=== PATIENT | male | born 1955 | race Caucasian/White ===

== ENCOUNTER 2021-06-27 15:13 | Emergency (ER) | payer OTHER, SELFPAY ==
[2021-06-27 15:20] VITALS: BP 142/86; PULSE 59; RESP 22; TEMP 36.5; O2SAT 95; BMI 25.8
--- NOTE | 2021-06-27 15:28 | DI.RAD.S_ITS ---
PROCEDURE: XR CHEST 1V INDICATIONS: SOB TECHNIQUE: One view of the chest was acquired. COMPARISON: None. FINDINGS: Surgical changes and devices: None. Lungs and pleura: Minimal hazy opacity at the left lung base. Suspect atelectasis. No consolidation. No pleural effusions or pneumothorax. Mediastinum: Mediastinal contours appear normal. Heart size is normal. Bones and chest wall: No suspicious bony lesions. Overlying soft tissues appear unremarkable. IMPRESSION: Minimal hazy opacity at the left lung base. Suspect atelectasis. Dictated by: Rosales Pacheco M.D. on 06/27/2021 at 14:48 Approved by: Rosales Pacheco M.D. on 06/27/2021 at 14:49
[2021-06-27 15:45] LABS: Add Manual Diff / Slide Review NO; Basophils Absolute Auto 0 /uL (0-100); Basophils Percent Auto 0.8 % (0-2); Eosinophils Absolute Auto 200 /uL (0-450); Eosinophils Percent Auto 4.9 % (2-4); Hematocrit 42.2 % (41-53); Hemoglobin 14.7 g/dL (13.5-17.5); Lymphocytes Absolute Auto 1300 /uL (1100-4500); Lymphocytes Percent Auto 29.4 % (25-40); Mean Corpuscular HGB Conc 34.7 % (30-36); Mean Corpuscular Hemoglobin 29.8 PG (26-34); Mean Corpuscular Volume 85.9 fL (80-100); Monocytes Absolute Auto 700 /uL (0-900); Monocytes Percent Auto 16.1 % (3-14); Neutrophils Absolute Auto 2100 /uL (1500-7000); Neutrophils Percent Auto 48.8 % (50-75); Platelet Count 146 X10^3/uL (150-400); Red Blood Cell Count 4.92 X10^6/uL (4.5-5.9); Red Cell Distribution Width 13.3 % (11.6-14.8); White Blood Cell Count 4.3 X10^3/uL (4.5-11.0)
[2021-06-27 15:52] LABS: INR 2.7 (0.9-1.3); Prothrombin Time 31.3 SECONDS (10.1-12.7)
[2021-06-27 15:57] LABS: Alanine Aminotransferase 33 IU/L (<50); Albumin 4.3 g/dL (3.5-5.0); Albumin Globulin Ratio 1.3 (1.0-2.8); Alkaline Phosphatase 111 U/L (38-126); Aspartate Aminotransferase 44 IU/L (17-59); BUN Creatinine Ratio 28.8 (6-22); Bilirubin Total 0.6 mg/dL (0.2-1.3); Blood Urea Nitrogen 21 mg/dL (9-20); Calcium 9.4 mg/dL (8.4-10.2); Carbon Dioxide 27 mmol/L (22-32); Chloride 102 mmol/L (98-107); Creatine Kinase 176 U/L (55-170); Estimated Glomerular Filt Rate > 60.0 mL/min (>60); Globulin 3.2 g/dL (1.7-4.1); Glucose 99 mg/dL (80-110); HEMOLYSIS < 15 (0-50); Potassium 4.4 mmol/L (3.4-5.1); Sodium 135 mmol/L (137-145); Total Protein 7.5 g/dL (6.3-8.2)
[2021-06-27 16:00] LABS: COVID19 -Nasal RAPID Negative (Negative)
[2021-06-27 16:10] LABS: NT-proBNP (BNP-Adult 18+) 23 pg/mL (<125); Troponin I < 0.012 ng/mL (0.01-0.034)
[2021-06-27 16:13] LABS: CKMB % Relative Index 1.8 % (1.5-5.0); Creatine Kinase MB 3.13 ng/mL (<2.37)
--- NOTE | 2021-06-27 17:04 | ED.URI ---
HPI - URI/Sore Throat General Chief Complaint: Upper Respiratory Symptoms Stated Complaint: Resp Falling Off, Thinks COVID Time Seen by Provider: 06/27/21 15:28 Source: patient Mode of arrival: Ambulatory History of Present Illness HPI Narrative: 66-year-old male nonsmoker with a reported history of possible atrial fibrillation presents with a chief complaint of various upper respiratory symptoms over the past few days. He states he has had runny nose, sneezing and nasal congestion as well as some postnasal drip and occasional cough. He states that over the past day or to his breathing has become increasingly difficult. He states it is worse when he is active but denies any change when he lies flat. He has had no fever or chills. He denies GI symptoms such as nausea, vomiting or diarrhea. He called his nursing hotline and was instructed to present here. Related Data Allergies Allergy/AdvReac Type Severity Reaction Status Date / Time No Known Drug Allergies Allergy Verified 06/27/21 15:25 Review of Systems Review of Systems Narrative: GENERAL: See HPI HEENT see HPI RESPIRATORY: See HPI CARDIOVASCULAR: Denies chest pain, palpitations, orthopnea, edema, GASTROINTESTINAL: Denies nausea, vomiting, abdominal pain, diarrhea, constipation, melena. : Denies dysuria, frequency, incontinence, hematuria, urinary retention. MUSCULOSKELETAL: denies weakness, joint pain, or bony pain SKIN: Denies rash, skin lesions, or other NEUROLOGIC: Denies weakness, headache, numbness, change in speech, confusion, seizures, incoordination. PSYCHIATRIC: No concerning psychosocial issues. 12 point review of systems is negative except for those stated above Patient History Social History Smoking Status: Unknown if ever smoked Smoking Status: Unknown if ever smoked alcohol intake frequency: holidays/special occasions only Substance Use Type: does not use Exam Narrative Exam Narrative: GENERAL: [66 year old patient appears stated age. Well-developed patient, in mild distress. HEAD: Atraumatic. Normocephalic. EYES: Pupils equal round and reactive. Extraocular motions intact. No scleral icterus. No injection or drainage. ENT: Nose without bleeding, purulent drainage. Throat without erythema, tonsillar hypertrophy or exudate. Airway patent. NECK: Trachea midline. Non tender CARDIOVASCULAR: Regular rate and rhythm without murmurs, gallops, or rubs. RESPIRATORY: Clear to auscultation. Breath sounds equal bilaterally. No wheezes, rales, or rhonchi. GASTROINTESTINAL: Abdomen soft, non-tender, nondistended. EXTREMITIES: No edema or joint tenderness. BACK: Nontender without deformity or crepitance. No flank tenderness. NEURO: AOx3. SKIN: No rash or erythema of visible areas Initial Vital Signs Initial Vital Signs: Vital Signs Temperature 97.7 F 06/27/21 15:20 Pulse Rate 59 L 06/27/21 15:20 Respiratory Rate 22 06/27/21 15:20 Blood Pressure 142/86 H 06/27/21 15:20 Pulse Oximetry 95 06/27/21 15:20 Course Orders Ordered: ED Orders 06/27/21 13:37 COVID19 -Nasal swab/Pre-Proc Stat Complete Blood Count AUTO DIFF Stat Comprehensive Metabolic Panel Stat NT-proBNP (BNP-Adult 18+) Stat Prothrombin Time INR Stat Troponin & CK Cardiac Panel Stat 06/27/21 15:28 XR chest 1V Stat Vital Signs Vital signs: Vital Signs - 8 hr 06/27/21 15:20 Temperature 97.7 F Pulse Rate 59 L Respiratory Rate 22 Blood Pressure 142/86 H Pulse Oximetry 95 MDM - URI/Sore Throat Lab Data Result diagrams: 06/27/21 13:37 06/27/21 13:37 Labs: Lab Results 06/27/21 06/27/21 06/27/21 Range/Units 13:37 13:37 13:37 WBC 4.3 L (4.5-11.0) X10^3/uL RBC 4.92 (4.5-5.9) X10^6/uL Hgb 14.7 (13.5-17.5) g/dL Hct 42.2 (41-53) % MCV 85.9 (80-100) fL MCH 29.8 (26-34) PG MCHC 34.7 (30-36) % RDW 13.3 (11.6-14.8) % Plt Count 146 L (150-400) X10^3/uL Neut % (Auto) 48.8 L (50-75) % Lymph % (Auto) 29.4 (25-40) % [place] % (Auto) 16.1 H (3-14) % Eos % (Auto) 4.9 H (2-4) % Baso % (Auto) 0.8 (0-2) % Neut # (Auto) 2100 (6341-0134) /uL Lymph # (Auto) 1300 (9946-9655) /uL [place] # (Auto) 700 (0-900) /uL Eos # (Auto) 200 (0-450) /uL Baso # (Auto) 0 (0-100) /uL PT 31.3 H (10.1-12.7) SECONDS INR 2.7 H (0.9-1.3) Sodium 135 L (137-145) mmol/L Potassium 4.4 (3.4-5.1) mmol/L Chloride 102 (98-107) mmol/L Carbon Dioxide 27 (22-32) mmol/L BUN 21 H (9-20) mg/dL Creatinine 0.73 (0.66-1.25) mg/dL Estimated GFR > 60.0 (>60) mL/min BUN/Creatinine Ratio 28.8 H (6-22) Glucose 99 (80-110) mg/dL Calcium 9.4 (8.4-10.2) mg/dL Total Bilirubin 0.6 (0.2-1.3) mg/dL AST 44 (17-59) IU/L ALT 33 (<50) IU/L Alkaline Phosphatase 111 (38-126) U/L Total Creatine Kinase 176 H (55-170) U/L CK-MB (CK-2) 3.13 H (<2.37) ng/mL CK-MB (CK-2) Rel Index 1.8 (1.5-5.0) % Troponin I < 0.012 (0.01-0.034) ng/mL NT-Pro-B Natriuret Pep 23 (<125) pg/mL Total Protein 7.5 (6.3-8.2) g/dL Albumin 4.3 (3.5-5.0) g/dL Globulin 3.2 (1.7-4.1) g/dL Albumin/Globulin Ratio 1.3 (1.0-2.8) SARS-CoV-2 (PCR) (Negative) 06/27/21 Range/Units 13:37 WBC (4.5-11.0) X10^3/uL RBC (4.5-5.9) X10^6/uL Hgb (13.5-17.5) g/dL Hct (41-53) % MCV (80-100) fL MCH (26-34) PG MCHC (30-36) % RDW (11.6-14.8) % Plt Count (150-400) X10^3/uL Neut % (Auto) (50-75) % Lymph % (Auto) (25-40) % [place] % (Auto) (3-14) % Eos % (Auto) (2-4) % Baso % (Auto) (0-2) % Neut # (Auto) (1062-9719) /uL Lymph # (Auto) (6931-9221) /uL [place] # (Auto) (0-900) /uL Eos # (Auto) (0-450) /uL Baso # (Auto) (0-100) /uL PT (10.1-12.7) SECONDS INR (0.9-1.3) Sodium (137-145) mmol/L Potassium (3.4-5.1) mmol/L Chloride (98-107) mmol/L Carbon Dioxide (22-32) mmol/L BUN (9-20) mg/dL Creatinine (0.66-1.25) mg/dL Estimated GFR (>60) mL/min BUN/Creatinine Ratio (6-22) Glucose (80-110) mg/dL Calcium (8.4-10.2) mg/dL Total Bilirubin (0.2-1.3) mg/dL AST (17-59) IU/L ALT (<50) IU/L Alkaline Phosphatase (38-126) U/L Total Creatine Kinase (55-170) U/L CK-MB (CK-2) (<2.37) ng/mL CK-MB (CK-2) Rel Index (1.5-5.0) % Troponin I (0.01-0.034) ng/mL NT-Pro-B Natriuret Pep (<125) pg/mL Total Protein (6.3-8.2) g/dL Albumin (3.5-5.0) g/dL Globulin (1.7-4.1) g/dL Albumin/Globulin Ratio (1.0-2.8) SARS-CoV-2 (PCR) Negative (Negative) Imaging Data Chest x-ray: Radiologist's Impression: Chart Viewer Diagnostics Subcategory All Activity ??:?? All Time ??:?? All Subcategories Filter Laboratory Imaging Microbiology Pathology Blood Bank Tests Cardiovascular Other Specialty DATE TYPE STATUS REF RANGE/AUTHOR Hx Today 15:28 Chest X-Ray Signed Call,Clement Davila ED 66, M?1955 MRN#? [id number] REG ER,?Main ED??R08?? 177.8cm 81.647kg BMI: 25.8kg/m? Upper Respiratory Symptoms Acc#? [id number] Resus Status Not Ordered No Hx Avail Special Indicators No Data to Display Home Meds Prescription Monitoring Program No Data to Display Allergies No Known Drug Allergies Problems ? ONSET Upper respiratory infection Vital Signs Today 15:20 BP 142/86?H Pulse 59?L Resp 22? Temp 97.7 F? O2 Sat 95? Delivery Room Air? Diagnostics Reports Clement Lantigua??66??M??1955 ? Allergy/Adv: No Known Drug Allergies (More??) Close Chest X-Ray (Signed) CallRosales - 06/27/21 Launch?[place] [address] XRay Report Signed Patient: Clement Lantigua MR#: [id number] : 1955 Acct:[id number] Age/Sex: 66 / M Date of Service: 06/27/21 Loc: ED Accession Number: [id number] ?? Procedure: XR chest 1V Ordering Provider: Geronimo Pineda D.O. PROCEDURE:? XR CHEST 1V ? INDICATIONS:? SOB ? TECHNIQUE:? One view of the chest was acquired.? ? COMPARISON:? None. ? FINDINGS:? ? Surgical changes and devices:? None.? ? Lungs and pleura:? Minimal hazy opacity at the left lung base.? Suspect atelectasis.? No consolidation.? No pleural effusions or pneumothorax.? ? Mediastinum:? Mediastinal contours appear normal.? Heart size is normal.? ? Bones and chest wall:? No suspicious bony lesions.? Overlying soft tissues appear unremarkable.? ? IMPRESSION:? Minimal hazy opacity at the left lung base.? Suspect atelectasis. ? ? ? Dictated by: Rosales Pacheco M.D. on 06/27/2021 at 14:48 ? ? Approved by: Rosales Pacheco M.D. on 06/27/2021 at 14:49 ? [facility] Narrative Medical decision making narrative: Patient with very reassuring history and physical exam. Labs are unremarkable, chest x-ray demonstrates atelectasis and COVID is negative. He has no significant work of breathing, need for exhaustion is oxygen and lungs are clear on exam. We did briefly discuss the potential use of an atypical coverage for atypical pneumonia but given his use of Coumadin for AFib and lack of classic findings as well as his general sensitivity to antibiotics we elected to hold off. Extensive return precautions given and questions answered to his apparent satisfaction Discharge Plan Departure Patient Disposition: Home Clinical Impression: Upper respiratory infection Instructions: DI for Viral Upper Respiratory Infection -- Adult Activity Restrictions/Additional Instructions: *You have been diagnosed with [viral upper respiratory infection. As we discussed your COVID test is negative. Your history and physical exam are reassuring as is the blood work and chest x-ray. *What to do: *Please continue to take your regular medications as directed. As we discussed, please consider taking your cetirizine twice daily for the next week or so and resume the use of your Flonase which may also help. *Please follow up with your primary care provider in 2-3 days, call for an appointment. Let them know you were seen in the Emergency Department and that we ask that you be seen in follow up. We will electronically transmit a record of today's note if your PCP is in our system *If you do not have a primary care provider please contact the [facility] Resource line at [phone]. They will ask some questions about your medical history and help get you set up with a doctor in the community. *Return to Emergency Department if you should have any new, worsening or concerning symptoms, such as [fever greater than 101 F, shaking chills, worsening pain, persistent vomiting or other bothersome symptoms] Referrals: Salo Lovett MD [Primary Care Provider] -
[2021-06-27 17:33] VITALS: BP 138/86; PULSE 53; RESP 16; TEMP 36.8; O2SAT 96
== END 2021-06-27 17:34 | disposition home or self-care (01) ==
PROVIDERS: Emergency Provider Emergency Medicine; PCP Internal Medicine
DX: J06.9 Acute upper respiratory infection, unspecified (principal); Z20.822 Contact with and (suspected) exposure to COVID-19
CPT/HCPCS: 36415; 71045; 80053; 82550; 82553; 83880; 84484; 85025; 85610; 87635; 99283; 99284; C9803

== ENCOUNTER 2022-02-28 11:22 | Emergency (ER) | payer OTHER, SELFPAY ==
[2022-02-28 11:32] VITALS: BP 137/89; PULSE 64; RESP 17; TEMP 36.5; O2SAT 98; BMI 25.8
--- NOTE | 2022-02-28 11:33 | DI.RAD.S_ITS ---
PROCEDURE: XR CHEST 1V INDICATIONS: chest pain TECHNIQUE: One view of the chest was acquired. COMPARISON: [facility], CR, XR CHEST 1V, 06/27/2021, 15:37. FINDINGS: Surgical changes and devices: None. Lungs and pleura: Lungs are clear. No pleural effusions or pneumothorax. Mediastinum: Mediastinal contours appear normal. Heart size is normal. Bones and chest wall: No suspicious bony lesions. Overlying soft tissues appear unremarkable. IMPRESSION: No acute cardiopulmonary abnormality identified. Dictated by: Rosales Pacheco M.D. on 02/28/2022 at 12:56 Approved by: Rosales Pacheco M.D. on 02/28/2022 at 12:57
[2022-02-28 12:08] LABS: Add Manual Diff / Slide Review NO; Basophils Absolute Auto 0 /uL (0-100); Basophils Percent Auto 0.5 % (0-2); Eosinophils Absolute Auto 200 /uL (0-450); Eosinophils Percent Auto 3.8 % (2-4); Hematocrit 41.8 % (41-53); Hemoglobin 13.8 g/dL (13.5-17.5); Lymphocytes Absolute Auto 1000 /uL (1100-4500); Lymphocytes Percent Auto 18.1 % (25-40); Mean Corpuscular HGB Conc 33.1 % (30-36); Mean Corpuscular Hemoglobin 29.1 PG (26-34); Mean Corpuscular Volume 87.8 fL (80-100); Monocytes Absolute Auto 600 /uL (0-900); Monocytes Percent Auto 11.9 % (3-14); Neutrophils Absolute Auto 3500 /uL (1500-7000); Neutrophils Percent Auto 65.7 % (50-75); Platelet Count 148 X10^3/uL (150-400); Red Blood Cell Count 4.76 X10^6/uL (4.5-5.9); Red Cell Distribution Width 13.5 % (11.6-14.8); White Blood Cell Count 5.3 X10^3/uL (4.5-11.0)
[2022-02-28 12:09] LABS: INR 2.7 (0.9-1.3); Prothrombin Time 31.6 SECONDS (10.1-12.7)
[2022-02-28 12:12] LABS: PTT Partial Thromboplastin Tim 40 SECONDS (26-36)
[2022-02-28 12:24] LABS: Alanine Aminotransferase 31 IU/L (<50); Albumin 4.3 g/dL (3.5-5.0); Albumin Globulin Ratio 1.4 (1.0-2.8); Alkaline Phosphatase 97 U/L (38-126); Aspartate Aminotransferase 32 IU/L (17-59); BUN Creatinine Ratio 19.6 (6-22); Bilirubin Total 0.7 mg/dL (0.2-1.3); Blood Urea Nitrogen 11 mg/dL (9-20); Calcium 9.3 mg/dL (8.4-10.2); Carbon Dioxide 27 mmol/L (22-32); Chloride 102 mmol/L (98-107); Creatine Kinase 117 U/L (55-170); Estimated Glomerular Filt Rate > 60 mL/min (>60); Glucose 111 mg/dL (80-110); HEMOLYSIS < 15 (0-50); Lipase 75 U/L (23-300); Magnesium 1.9 mg/dL (1.6-2.3); Potassium 4.4 mmol/L (3.4-5.1); Sodium 138 mmol/L (137-145); Total Protein 7.3 g/dL (6.3-8.2)
[2022-02-28 12:35] LABS: Troponin I < 0.012 ng/mL (0.01-0.034)
[2022-02-28 12:39] LABS: CKMB % Relative Index 1.3 % (1.5-5.0); Creatine Kinase MB 1.48 ng/mL (<2.37)
[2022-02-28 15:03] LABS: Troponin I < 0.012 ng/mL (0.01-0.034)
[2022-02-28 16:50] VITALS: BP 146/74; PULSE 56; RESP 19
[2022-02-28 17:00] VITALS: BP 131/87; PULSE 57; RESP 27; O2SAT 99
--- NOTE | 2022-02-28 17:19 | ED_ITS ---
HPI - Chest Pain General Chief Complaint: Chest Pain Stated Complaint: heart pain t-1 Time Seen by Provider: 02/28/22 16:29 Source: patient Mode of arrival: Ambulatory Limitations: no limitations History of Present Illness HPI narrative: This is a 66-year-old male with hypertension, dyslipidemia, atrial fibrillation with daily warfarin and what he describes as chronic pain syndrome on the left side of his body. Patient presents with complaint of left-sided chest pain which he states has occurred in the past he states he has always been told that it is not his heart when he has had it checked out. Patient states he does take ibuprofen at sometimes helpful. He denies any shortness of breath he states his left shoulder and chest. Also into his left ear but he states ear discomfort is chronic and he has not had his phenylephrine nasal today and so that has returned. Patient states he has been a friend for eustachian tube dysfunction. He denies fevers, chills, cold cough or congestion. He denies nausea or vomiting, no diaphoresis. No new swelling of extremities. Patient states it started yesterday and has continued throughout the entire day, night and into today. Nothing seems to make it better or worse. Notes he has what he describes as a pain syndrome that affects his left side including his leg his thoracic area in the back normally. Patient states he has had tonsillectomy he has never had cardiac stents or intervention. Patient states he is allergic to latex. Denies any active tobacco, occasional alcohol, no illicit. His primary care is through [facility] XAVI Zavala. Related Data Home Medications Medication Instructions Recorded Confirmed atorvastatin 40 mg tablet 40 mg PO DAILY 02/28/22 02/28/22 benazepril 20 mg tablet 20 mg PO DAILY 02/28/22 02/28/22 carvedilol 12.5 mg tablet 12.5 mg PO DAILY 02/28/22 02/28/22 finasteride 5 mg tablet 5 mg PO DAILY 02/28/22 02/28/22 lansoprazole 30 mg capsule,delayed 30 mg PO DAILY 02/28/22 02/28/22 release tamsulosin 0.4 mg capsule 0.4 mg PO DAILY 02/28/22 02/28/22 warfarin 2 mg tablet See Rx Instructions .Route .COMPLEX 02/28/22 02/28/22 warfarin 5 mg tablet See Rx Instructions .Route .COMPLEX 02/28/22 02/28/22 Allergies Allergy/AdvReac Type Severity Reaction Status Date / Time No Known Drug Allergies Allergy Verified 02/28/22 11:35 Review of Systems Review of Systems ROS Unobtainable: All systems reviewed & are unremarkable except as noted in HPI and below Patient History Social History Smoking Status: Unknown if ever smoked Smoking Status: Unknown if ever smoked alcohol intake frequency: holidays/special occasions only Substance Use Type: does not use Exam Narrative Exam Narrative: GENERAL: Alert and oriented x three, male in mild distress. HEENT: Head normocephalic, atraumatic, EOMI, pupils reactive, face symmetric, moist mucous membranes NECK: Supple, full range of motion, no cervical vertebral tenderness. CARDIOVASCULAR: Regular rate and rhythm without murmurs, rubs or gallops. No JVD. No swelling bilateral lower extremities or upper extremities. RESPIRATORY: Breath sounds equal bilaterally, no wheezes rales or rhonchi. ABDOMEN: Soft, nontender. Normoactive bowel sounds all 4 quadrants. No guarding or rebound, rigidity, no mass : No CVA tenderness EXTREMITIES: Normal range of motion, no clubbing or edema. Neurovascularly intact. NEUROLOGICAL: Cranial nerves II through XII grossly intact. Moving all extremities. 5/5 muscle strength, normal range of motion of the shoulder. SKIN: Warm, dry, no petechiae, no rashes or lesions, no blisters erythema on the torso or back. Initial Vital Signs Initial Vital Signs: Vital Signs Temperature 97.7 F 02/28/22 11:32 Pulse Rate 64 02/28/22 11:32 Respiratory Rate 17 02/28/22 11:32 Blood Pressure 137/89 02/28/22 11:32 Pulse Oximetry 98 02/28/22 11:32 Oxygen Delivery Method 02/28/22 11:32 Course Orders Ordered: ED Orders 02/28/22 11:33 XR chest 1V Stat 02/28/22 11:36 EKG-12 Lead Stat 02/28/22 11:44 Complete Blood Count AUTO DIFF Stat Comprehensive Metabolic Panel Stat Lipase Stat Magnesium Stat Partial Thromboplastin Time Stat Prothrombin Time INR Stat Troponin & CK Cardiac Panel Stat 02/28/22 14:05 Trop I [Troponin I] Stat 02/28/22 17:08 EKG-12 Lead Stat 02/28/22 17:21 COVID19 -Nasal RAPID/Pre-Proc Stat Discontinued Medications Aspirin (Aspirin 81 Mg Chew Tab) 324 mg PO NOW ONE Stop: 02/28/22 11:33 Last Admin: 02/28/22 17:23 Dose: Not Given Documented By: JOHNATHON Ketorolac Tromethamine (Ketorolac 30 Mg/Ml Vial) 15 mg IV NOW ONE Stop: 02/28/22 17:37 Last Admin: 02/28/22 18:03 Dose: 15 mg Documented By: JOHNATHON Vital Signs Vital signs: Vital Signs - 8 hr 02/28/22 16:50 02/28/22 16:50 02/28/22 17:00 Pulse Rate 56 L Respiratory Rate 19 Blood Pressure 146/74 H 131/87 Pulse Oximetry 02/28/22 17:00 02/28/22 17:30 02/28/22 17:30 Pulse Rate 57 L 54 L Respiratory Rate 27 H 21 Blood Pressure 144/88 H Pulse Oximetry 99 98 02/28/22 18:00 02/28/22 18:00 02/28/22 18:30 Pulse Rate 55 L Respiratory Rate 16 Blood Pressure 144/91 H 130/78 Pulse Oximetry 97 02/28/22 18:30 Pulse Rate 55 L Respiratory Rate 18 Blood Pressure Pulse Oximetry 96 MDM - Chest Pain Lab Data Result diagrams: 02/28/22 11:44 02/28/22 11:44 Labs: Lab Results 02/28/22 02/28/22 02/28/22 Range/Units 11:44 11:44 11:44 WBC 5.3 (4.5-11.0) X10^3/uL RBC 4.76 (4.5-5.9) X10^6/uL Hgb 13.8 (13.5-17.5) g/dL Hct 41.8 (41-53) % MCV 87.8 (80-100) fL MCH 29.1 (26-34) PG MCHC 33.1 (30-36) % RDW 13.5 (11.6-14.8) % Plt Count 148 L (150-400) X10^3/uL Neut % (Auto) 65.7 (50-75) % Lymph % (Auto) 18.1 L (25-40) % [place] % (Auto) 11.9 (3-14) % Eos % (Auto) 3.8 (2-4) % Baso % (Auto) 0.5 (0-2) % Neut # (Auto) 3500 (2836-1374) /uL Lymph # (Auto) 1000 L (2356-5437) /uL [place] # (Auto) 600 (0-900) /uL Eos # (Auto) 200 (0-450) /uL Baso # (Auto) 0 (0-100) /uL PT 31.6 H (10.1-12.7) SECONDS INR 2.7 H (0.9-1.3) APTT 40 H (26-36) SECONDS Sodium 138 (137-145) mmol/L Potassium 4.4 (3.4-5.1) mmol/L Chloride 102 (98-107) mmol/L Carbon Dioxide 27 (22-32) mmol/L BUN 11 (9-20) mg/dL Creatinine 0.56 L (0.66-1.25) mg/dL Estimated GFR > 60 (>60) mL/min BUN/Creatinine Ratio 19.6 (6-22) Glucose 111 H (80-110) mg/dL Calcium 9.3 (8.4-10.2) mg/dL Magnesium 1.9 (1.6-2.3) mg/dL Total Bilirubin 0.7 (0.2-1.3) mg/dL AST 32 (17-59) IU/L ALT 31 (<50) IU/L Alkaline Phosphatase 97 (38-126) U/L Total Creatine Kinase 117 (55-170) U/L CK-MB (CK-2) 1.48 (<2.37) ng/mL CK-MB (CK-2) Rel Index 1.3 L (1.5-5.0) % Troponin I < 0.012 (0.01-0.034) ng/mL Total Protein 7.3 (6.3-8.2) g/dL Albumin 4.3 (3.5-5.0) g/dL Globulin 3.0 (1.7-4.1) g/dL Albumin/Globulin Ratio 1.4 (1.0-2.8) Lipase 75 (23-300) U/L SARS-CoV-2 (PCR) (Negative) 02/28/22 02/28/22 Range/Units 14:05 17:21 WBC (4.5-11.0) X10^3/uL RBC (4.5-5.9) X10^6/uL Hgb (13.5-17.5) g/dL Hct (41-53) % MCV (80-100) fL MCH (26-34) PG MCHC (30-36) % RDW (11.6-14.8) % Plt Count (150-400) X10^3/uL Neut % (Auto) (50-75) % Lymph % (Auto) (25-40) % [place] % (Auto) (3-14) % Eos % (Auto) (2-4) % Baso % (Auto) (0-2) % Neut # (Auto) (5464-2191) /uL Lymph # (Auto) (4897-2624) /uL [place] # (Auto) (0-900) /uL Eos # (Auto) (0-450) /uL Baso # (Auto) (0-100) /uL PT (10.1-12.7) SECONDS INR (0.9-1.3) APTT (26-36) SECONDS Sodium (137-145) mmol/L Potassium (3.4-5.1) mmol/L Chloride (98-107) mmol/L Carbon Dioxide (22-32) mmol/L BUN (9-20) mg/dL Creatinine (0.66-1.25) mg/dL Estimated GFR (>60) mL/min BUN/Creatinine Ratio (6-22) Glucose (80-110) mg/dL Calcium (8.4-10.2) mg/dL Magnesium (1.6-2.3) mg/dL Total Bilirubin (0.2-1.3) mg/dL AST (17-59) IU/L ALT (<50) IU/L Alkaline Phosphatase (38-126) U/L Total Creatine Kinase (55-170) U/L CK-MB (CK-2) (<2.37) ng/mL CK-MB (CK-2) Rel Index (1.5-5.0) % Troponin I < 0.012 (0.01-0.034) ng/mL Total Protein (6.3-8.2) g/dL Albumin (3.5-5.0) g/dL Globulin (1.7-4.1) g/dL Albumin/Globulin Ratio (1.0-2.8) Lipase (23-300) U/L SARS-CoV-2 (PCR) Negative (Negative) Imaging Data Chest x-ray: Radiologist's Impression: Close Abdomen/Pelvis CT (Signed) Isaac Chen - 02/28/22 Chest X-Ray (Signed) Marko Loya - 02/28/22 Abdomen Ultrasound (Signed) KingRosendo jonesel - 02/12/22 Abdomen/Pelvis CT (Signed) StefanoBennie - 02/12/22 Abdomen Ultrasound (Signed) Rosales Pacheco - 09/23/21 Tibia/Fibula X-Ray (Signed) Pierce Parmar - 05/06/21 Foot X-Ray (Signed) Pierce Parmar - 05/06/21 Vascular Ultrasound (Signed) Jairo Bledsoe - 05/04/21 DI Result 05/01/21 DI Result CC 05/01/21 DI Result CC 04/24/[address] (Signed) Sherley Zavala - 03/14/21 Cervical Spine MRI (Signed) Pierce Parmar - 03/14/[address] (Signed) Sherley Zavala - 03/10/21 Abdomen/Pelvis CT (Signed) Garry De Santiago - 02/20/21 Outside Echo 10/08/20 DI Result CC 10/08/20 Thoracic Spine X-Ray (Signed) Garry De Santiago - 08/02/20 Hip X-Ray (Signed) Garry De Santiago - 08/02/20 Abdomen Ultrasound (Signed) Isaac Chen - 06/04/20 Chest X-Ray (Signed) Deny Walls - 06/04/20 Echocardiogram Ultrasound (Signed) Roslyn Mclaughlin - 06/15/19 Abdomen Ultrasound (Signed) Pepe Obrien - 05/12/19 Chest X-Ray (Signed) Lizzeth Dickinson - 04/14/19 EKG Rpt. 04/14/19 Telemetry Strips 04/14/19 Telemetry Strips 03/31/18 Telemetry Strips 12/09/[address] [address] [address] Scan Report Signed Patient: Jose Ramon Luna MR#: [id number] : 05/15/1950 Acct:[id number] Age/Sex: 71 / M Date of Service: 02/28/22 Loc: ED Accession Number: [id number] ?? Procedure: CT abdomen pelvis w con Ordering Provider: Deisi Trejo D.O. PROCEDURE:? CT ABDOMEN PELVIS W CON ? INDICATIONS:? abd pain ? TECHNIQUE:? After the administration of intravenous contrast, axial sections acquired from the lung bases to the pubic symphysis.? Coronal and sagittal reformats were performed.? For radiation dose reduction, the following was used:? automated exposure control, adjustment of mA and/or kV according to patient size.? ? COMPARISON:? [facility], CT, CT ABDOMEN PELVIS W CON, 02/12/2022, 18:44.? [facility], CT, CT ABDOMEN PELVIS W CON, 02/20/2021, 18:24. ? FINDINGS:? Image quality:? Excellent.? ? Lung bases:? Unremarkable. Heart:? No significant findings. ? ABDOMEN: Liver:? Small in size, nodular in margination.? Mildly heterogeneous in enhancement but no mass found..? ? Gallbladder:? Surgically absent? ? Biliary ducts:? Unremarkable.? ? Pancreas:? Unremarkable.? ? Spleen:? Enlarged up to 17 cm craniocaudad.? ? Adrenal Glands:? Unremarkable.? ? Kidneys and Ureters:? Unremarkable.? ? ? Stomach and Bowel:? Stomach, small bowel loops, and colon are unremarkable.? Peritoneum:? Significant abnormal intraperitoneal fluid, consistent with ascites likely related to hepatic insufficiency and portal hypertension.? Mild varices..? No free air.? ? Ventral Wall: ? No hernias.? Abdominal Nodes:? No retroperitoneal or mesenteric adenopathy by size criteria.? Vessels:? Aorta and inferior vena cava are normal in size.? ? PELVIS: Pelvic Organs:? Unremarkable.? ? Bladder:? Unremarkable.? ? Pelvic Nodes: No enlarged lymph nodes.? Miscellaneous: No hernias are seen. ? ? ? Bones:? Unremarkable.? IMPRESSION:? Cirrhotic change at the liver, relatively prominent ascites.? Splenomegaly, mild varices.? Varices extend cephalad along the distal esophagus to a mild degree.? A definite source of acute onset abdominal pain is not seen.. ? ? Dictated by: Isaac Chen M.D. on 02/28/2022 at 14:00 ? ? Approved by: Isaac Chen M.D. on 02/28/2022 at 14:05?? ECG Data Attestation: I personally reviewed and interpreted this ECG as follows: Prior ECG tracings: available for review Interpretation: Sinus bradycardia rate of 59 NH 184 QRS of [address] No acute [address] elevation EKG 2, sinus bradycardia rate of 53 NH 190 QRS of 98 QTC 388. No acute ST changes appreciated. Patient does not have priors for comparison. MDM Narrative Medical decision making narrative: This is a 66-year-old male hypertension, dyslipidemia who presents with left- sided chest that is been present since yesterday and today with no acute or dynamic EKG changes, no priors for comparison. Patient has troponins negative times. He describes a chronic pain syndrome that affects his left thoracic region and side frequently. He states he has had multiple cardiac a valve but never had cardiac catheterization. Patient does have some risk factors for c ardiac but been some length of time with negative troponin EKGs suspect he is not having acute coronary event. Chest x-ray does not show signs of infection no other acute causes clearly found, COVID swab negative. Patient would like to return home. Discharge Plan Departure Patient Disposition: Home Clinical Impression: Chest pain Instructions: DI for Chest Pain Activity Restrictions/Additional Instructions: Please follow-up with your physician. Your INR is 2.7 I have not found a clear cardiac cause for your chest pain today or other clear cause. Please continue home medications as prescribed. Your COVID swab will call if it is positive. Please return for rapidly worsening symptoms new shortness of breath worsening chest pain, passing out, new swelling of extremities or other new or concerning changes. Prescriptions: No Action atorvastatin 40 mg tablet 40 mg PO DAILY carvedilol 12.5 mg tablet 12.5 mg PO DAILY tamsulosin 0.4 mg capsule 0.4 mg PO DAILY lansoprazole 30 mg capsule,delayed release(DR/EC) 30 mg PO DAILY warfarin 2 mg tablet See Rx Instructions .ROUTE .COMPLEX Label Comments: 9mg on m, w, f 8mg on tue, thurs, sat, saun Rx Instructions: 9mg on m, w, f 8mg on tue, thurs, sat, saun warfarin 5 mg tablet See Rx Instructions .ROUTE .COMPLEX Rx Instructions: 9mg on m, w, f 8mg on thu, , thu, sun benazepril 20 mg tablet 20 mg PO DAILY finasteride 5 mg tablet 5 mg PO DAILY Referrals: Salo Lovett MD [Non-Staff] - Visit Report Forms: Patient Portal/API
[2022-02-28 17:30] VITALS: BP 144/88; PULSE 54; RESP 21; O2SAT 98
[2022-02-28 18:00] VITALS: BP 144/91; PULSE 55; RESP 16; O2SAT 97
[2022-02-28] MEDS: KETOROLAC 30 MG/ML VIAL 15 MG IV (18:03)
[2022-02-28 18:30] VITALS: BP 130/78; PULSE 55; RESP 18; O2SAT 96
[2022-02-28 19:04] LABS: COVID19 -Nasal RAPID Negative (Negative)
== END 2022-02-28 19:06 | disposition home or self-care (01) ==
PROVIDERS: Emergency Provider Emergency Medicine; PCP Physician Assistant
DX: R07.9 Chest pain, unspecified (principal); I10 Essential (primary) hypertension; Z20.822 Contact with and (suspected) exposure to COVID-19
CPT/HCPCS: 36415; 71045; 80053; 82550; 82553; 83690; 83735; 84484; 85025; 85610; 85730; 87635; 93005; 93010; 96374; 99284; C9803; J1885

== ENCOUNTER 2022-03-20 10:44 | Emergency (ER) | payer OTHER, SELFPAY ==
[2022-03-20 10:49] VITALS: BP 142/81; PULSE 58; RESP 15; TEMP 35.8; O2SAT 97; BMI 25.8
--- NOTE | 2022-03-20 10:51 | DI.RAD.S_ITS ---
PROCEDURE: XR FOOT LT MIN 3V INDICATIONS: foot pain TECHNIQUE: 3 views of the foot were acquired. COMPARISON: None. FINDINGS: Bones: No fractures or dislocations. No suspicious bony lesions. Soft tissues: No tibiotalar joint effusion. Achilles tendon appears normal. IMPRESSION: In no acute finding. Dictated by: Pierce Parmar M.D. on 03/20/2022 at 10:04 Approved by: Pierce Parmar M.D. on 03/20/2022 at 10:04
[2022-03-20 11:00] VITALS: BP 144/75; PULSE 92; TEMP 36.8; O2SAT 96
--- NOTE | 2022-03-20 11:13 | ED.LOWEXIN ---
HPI - Extremity Injury (Lower) General Chief Complaint: Extremity Injury, Lower Stated Complaint: thinks LT foot is broken history of fractures Time Seen by Provider: 03/20/22 10:58 Source: patient Mode of arrival: Ambulatory History of Present Illness HPI Narrative: comp Related Data Home Medications Medication Instructions Recorded Confirmed atorvastatin 40 mg tablet 40 mg PO DAILY 02/28/22 02/28/22 benazepril 20 mg tablet 20 mg PO DAILY 02/28/22 02/28/22 carvedilol 12.5 mg tablet 12.5 mg PO DAILY 02/28/22 02/28/22 finasteride 5 mg tablet 5 mg PO DAILY 02/28/22 02/28/22 lansoprazole 30 mg capsule,delayed 30 mg PO DAILY 02/28/22 02/28/22 release tamsulosin 0.4 mg capsule 0.4 mg PO DAILY 02/28/22 02/28/22 warfarin 2 mg tablet See Rx Instructions .Route .COMPLEX 02/28/22 02/28/22 warfarin 5 mg tablet See Rx Instructions .Route .COMPLEX 02/28/22 02/28/22 Allergies Allergy/AdvReac Type Severity Reaction Status Date / Time No Known Drug Allergies Allergy Verified 03/20/22 10:49 Patient History Social History Smoking Status: Unknown if ever smoked Smoking Status: Unknown if ever smoked alcohol intake frequency: holidays/special occasions only Substance Use Type: does not use Exam Initial Vital Signs Initial Vital Signs: Vital Signs Temperature 96.5 F L 03/20/22 10:49 Pulse Rate 58 L 03/20/22 10:49 Respiratory Rate 15 03/20/22 10:49 Blood Pressure 142/81 H 03/20/22 10:49 Pulse Oximetry 97 03/20/22 10:49 Oxygen Delivery Method 03/20/22 10:49 Course Orders Ordered: ED Orders 03/20/22 10:51 XR foot LT min 3V Stat 03/20/22 11:10 MR ankle RT wo con Stat Vital Signs Vital signs: Vital Signs - 8 hr 03/20/22 10:49 03/20/22 11:00 Temperature 96.5 F L 98.2 F Pulse Rate 58 L 92 H Respiratory Rate 15 Blood Pressure 142/81 H 144/75 H Pulse Oximetry 97 96 Oxygen Delivery Method Room Air Room Air Discharge Plan Departure Prescriptions: No Action atorvastatin 40 mg tablet 40 mg PO DAILY carvedilol 12.5 mg tablet 12.5 mg PO DAILY tamsulosin 0.4 mg capsule 0.4 mg PO DAILY lansoprazole 30 mg capsule,delayed release(DR/EC) 30 mg PO DAILY warfarin 2 mg tablet See Rx Instructions .ROUTE .COMPLEX Label Comments: 9mg on m, w, f 8mg on thu, , sat, saun Rx Instructions: 9mg on m, w, f 8mg on thu, , sat, saun warfarin 5 mg tablet See Rx Instructions .ROUTE .COMPLEX Rx Instructions: 9mg on m, w, f 8mg on thu, , sat, sun benazepril 20 mg tablet 20 mg PO DAILY finasteride 5 mg tablet 5 mg PO DAILY Referrals: Salo Zavala PA-C [Primary Care Provider] -
[2022-03-20 12:59] VITALS: PULSE 70
--- NOTE | 2022-03-20 12:59 | ED.LOWEXIN ---
HPI - Extremity Injury (Lower) <LINWOOD Wing - Last Filed: 03/20/22 14:32> General Chief Complaint: Extremity Injury, Lower Stated Complaint: thinks LT foot is broken history of fractures Time Seen by Provider: 03/20/22 10:58 Source: patient Mode of arrival: Ambulatory History of Present Illness HPI Narrative: This is a 66-year-old gentleman who presents to the emergency department with history of left foot fracture many years ago, states that he wears custom orthotics that are very expensive and has had ongoing midfoot pain under his arch of his left foot. He states it is more painful to walk on, states he has symptoms of plantar fasciitis as well. Patient complains of tenderness to palpation on the plantar aspect, none on the dorsum, denies swelling, rash, states that he has an appointment with ankle and foot in [place] in April but would like something for his pain. He is seeking a new orthotic, wishes to have something hard plastic. Patient is anticoagulated on warfarin for history of atrial fibrillation, he denies any swelling to his lower extremities, weakness, sensation changes. Denies any wound, denies history of diabetes. Related Data Home Medications Medication Instructions Recorded Confirmed atorvastatin 40 mg tablet 40 mg PO DAILY 02/28/22 02/28/22 benazepril 20 mg tablet 20 mg PO DAILY 02/28/22 02/28/22 carvedilol 12.5 mg tablet 12.5 mg PO DAILY 02/28/22 02/28/22 finasteride 5 mg tablet 5 mg PO DAILY 02/28/22 02/28/22 lansoprazole 30 mg capsule,delayed 30 mg PO DAILY 02/28/22 02/28/22 release tamsulosin 0.4 mg capsule 0.4 mg PO DAILY 02/28/22 02/28/22 warfarin 2 mg tablet See Rx Instructions .Route .COMPLEX 02/28/22 02/28/22 warfarin 5 mg tablet See Rx Instructions .Route .COMPLEX 02/28/22 02/28/22 Previous Rx's Medication Instructions Recorded diclofenac sodium 1 % topical gel 4 g topical QID #100 grams 03/20/22 Allergies Allergy/AdvReac Type Severity Reaction Status Date / Time No Known Drug Allergies Allergy Verified 03/20/22 10:49 Review of Systems <LINWOOD Wing - Last Filed: 03/20/22 14:32> Review of Systems ROS Unobtainable: All systems reviewed & are unremarkable except as noted in HPI and below Patient History <LINWOOD Wing - Last Filed: 03/20/22 14:32> Social History Smoking Status: Unknown if ever smoked Smoking Status: Unknown if ever smoked alcohol intake frequency: holidays/special occasions only Substance Use Type: does not use Exam <LINWOOD Wing - Last Filed: 03/20/22 14:32> Narrative Exam Narrative: Reviewed vitals signs and nursing notes. General: cooperative, comfortable, in no acute distress, well groomed MSK: moves all extremities, neurovascularly intact, no weakness, normal tone tenderness on his left foot to the proximal 5th metatarsal, on the plantar aspect under his arch of the metatarsals, without injury or ecchymosis, without wound, toenails are long do not appear infectious, no cellulitis or edema. No tenderness over Achilles tendon, MTP joint of his great toe, or dorsum of his metatarsals. Skin: brisk capillary refill, without pallor or erythema Neuro: normal speech and cognition, A&O x3, ambulatory, clear speech Psych: mental status is grossly normal, congruent mood, normal affect, pleasant and cooperative Initial Vital Signs Initial Vital Signs: Vital Signs Temperature 96.5 F L 03/20/22 10:49 Pulse Rate 58 L 03/20/22 10:49 Respiratory Rate 15 03/20/22 10:49 Blood Pressure 142/81 H 03/20/22 10:49 Pulse Oximetry 97 03/20/22 10:49 Oxygen Delivery Method 03/20/22 10:49 <Fam Caal MD - Last Filed: 03/20/22 17:38> Initial Vital Signs Initial Vital Signs: Vital Signs Temperature 96.5 F L 03/20/22 10:49 Pulse Rate 58 L 03/20/22 10:49 Respiratory Rate 15 03/20/22 10:49 Blood Pressure 142/81 H 03/20/22 10:49 Pulse Oximetry 97 03/20/22 10:49 Oxygen Delivery Method 03/20/22 10:49 Procedures <LINWOOD Wing - Last Filed: 03/20/22 14:32> Orthopedic Splinting/Casting Injury #1: Lower Extremity Immobilizer: post-op shoe Post splinting neuro exam: intact Post splinting vascular exam: intact Course <LINWOOD Wing - Last Filed: 03/20/22 14:32> Orders Ordered: ED Orders 03/20/22 10:51 XR foot LT min 3V Stat Vital Signs Vital signs: Vital Signs - 8 hr 03/20/22 10:49 03/20/22 11:00 03/20/22 12:59 Temperature 96.5 F L 98.2 F Pulse Rate 58 L 92 H Pulse Rate [Left Dorsalis Pedis] 70 Respiratory Rate 15 Blood Pressure 142/81 H 144/75 H Pulse Oximetry 97 96 Oxygen Delivery Method Room Air Room Air <Fam Caal MD - Last Filed: 03/20/22 17:38> Orders Ordered: ED Orders 03/20/22 10:51 XR foot LT min 3V Stat Vital Signs Vital signs: Vital Signs - 8 hr 03/20/22 10:49 03/20/22 11:00 03/20/22 12:59 Temperature 96.5 F L 98.2 F Pulse Rate 58 L 92 H Pulse Rate [Left Dorsalis Pedis] 70 Respiratory Rate 15 Blood Pressure 142/81 H 144/75 H Pulse Oximetry 97 96 Oxygen Delivery Method Room Air Room Air MDM - Extremity Injury (Lower) <Harini Gunn [facility] - Last Filed: 03/20/22 14:32> Imaging Data Extremity x-ray #1: Radiologist's Impression: PROCEDURE:? XR FOOT LT MIN 3V ? INDICATIONS:? foot pain ? TECHNIQUE:? 3 views of the foot were acquired.? ? COMPARISON:? None. ? FINDINGS:? ? Bones:? No fractures or dislocations.? No suspicious bony lesions.? ? Soft tissues:? No tibiotalar joint effusion.? Achilles tendon appears normal.? ? ? IMPRESSION:? In no acute finding. ? ? Dictated by: Pierce Parmar M.D. on 03/20/2022 at 10:04 ? ? Approved by: Pierce Parmar M.D. on 03/20/2022 at 10:04 ? [facility] Narrative Medical decision making narrative: This is a 66-year-old gentleman who presents to the emergency department complaining of worsening left foot palpation over the last 3 days with history of left foot pain and fracture with custom orthotics for many years. Patient is without injury, without skin changes, without edema, and has tenderness over the plantar aspect of his metatarsals in his midfoot. X-rays negative for acute abnormality, foot is without erythema or evidence of inflammation or infection. This is most likely a sprain/strain or metatarsalgia. He is without ecchymosis, no tenderness over Achilles MTP joint, has full range of motion without deficit including plantar extension and dorsiflexion. Patient was fitted in a postop shoe, he has a pending appointment with foot and ankle in [place] but did not want to wait without treatment. He was under the assumption that Tylenol had to be limited to 1300 mg due to his warfarin, we discussed this at length about his dosing and reassured him that it is safe to take 650 mg 3 times a day with his medications, he denies history of liver disease or drinking alcohol. Patient is appropriate and amenable to discharge home. Vital signs are stable on repeat examination is unremarkable. Patient has been informed of results. Patient has been given strict return to ER precautions for any new or worsening symptoms. Patient understands to follow up closely with outpatient providers as instructed. Patient understands plan and agrees to discharge home. All questions and concerns answered at this time. Discharge Plan Departure Patient Disposition: Home Clinical Impression: Pain of left midfoot Instructions: Metatarsalgia, DI for Foot Sprain Activity Restrictions/Additional Instructions: *You have been diagnosed with left foot pain which may be metatarsalalgia or arthritic changes related to your prior fractures. Your x-ray today does not show any acute fracture or new injury, does not have any suspicious bony lesions. Please follow-up with your consumer credit counselor at your appointment that is already scheduled or schedule an appointment with Dr. Cespedes if you would like to see another provider. Please look for heel cups or plantar fasciitis cups and see if this helps for your other shoe, the vega is to find a hard plastic, [employer] helpful if you do not see what you like the pharmacy. Please use the gel up to 4 times daily to help with pain, take Tylenol 650 mg 3 times daily every 6 hours as needed for your pain, remember to drink water, elevate your foot, ice it and try to avoid walking on it frequently if it is getting worse. Where the orthopedic shoe for at least a week to see if it helps. I hope you feel better soon. *What to do: *Please continue to take your regular medications as directed. [x ] New medication prescriptions sent to your pharmacy: [Brandie Cisse ] [ ] New medication written as a paper prescription [ ] No new medications given *Please follow up with your primary care provider in 2-3 days, call for an appointment. Let them know you were seen in the Emergency Department and that we asked that you be seen for follow-up. We will electronically transmit a record of today's note if your PCP is in our system *If you do not have a primary care provider please contact [phone] to establish care with one of the [facility] primary care providers. *Return to Emergency Department if you should have any new, worsening, or concerning symptoms, such as [fever greater than 101F, chills, worsening pain, persistent vomiting or other bothersome symptoms]. Prescriptions: New diclofenac sodium 1 % gel 4 g topical QID Qty: 100 0RF Rx Instructions: apply to foot up to 4 times a day to help with pain No Action atorvastatin 40 mg tablet 40 mg PO DAILY carvedilol 12.5 mg tablet 12.5 mg PO DAILY tamsulosin 0.4 mg capsule 0.4 mg PO DAILY lansoprazole 30 mg capsule,delayed release(DR/EC) 30 mg PO DAILY warfarin 2 mg tablet See Rx Instructions .ROUTE .COMPLEX Label Comments: 9mg on m, w, f 8mg on tue, thurs, sat, saun Rx Instructions: 9mg on m, w, f 8mg on tue, thurs, sat, saun warfarin 5 mg tablet See Rx Instructions .ROUTE .COMPLEX Rx Instructions: 9mg on m, w, f 8mg on tue, thurs, sat, sun benazepril 20 mg tablet 20 mg PO DAILY finasteride 5 mg tablet 5 mg PO DAILY Referrals: Salo Zavala PA-C [Primary Care Provider] - Chencho Cespedes DPM [Physician] - Visit Report Forms: Patient Portal/API <Fam Caal MD - Last Filed: 03/20/22 17:38> Cosign ED Attending Cosignature Attestation: I was immediately available in the department for consultation. ?This documentation has been reviewed and I agree with assessment and plan. Supervised by Fam Caal MD
--- NOTE | 2022-03-20 13:00 | PC.NURSE ---
Pt walking fast, fully ambulatory. Tobias/warm/dry. Denies complaints.
== END 2022-03-20 13:36 | disposition home or self-care (01) ==
PROVIDERS: Emergency Provider Nurse Practitioner Critical Care Medicine; PCP Physician Assistant
DX: M79.672 Pain in left foot (principal)
CPT/HCPCS: 73630; 99281; 99283